=== PATIENT | female | born 1975 | race Caucasian/White ===

== ENCOUNTER → 2019-10-19 12:52 | Outpatient (BNVA) | payer MEDICAID, SELFPAY | PROVIDERS: Family Provider Family Medicine; PCP Family Medicine; Visit Provider Nurse Practitioner | DX: M54.9 Dorsalgia, unspecified (principal); M54.2 Cervicalgia; M25.561 Pain in right knee; M25.562 Pain in left knee; F17.210 Nicotine dependence, cigarettes, uncomplicated; Z71.6 Tobacco abuse counseling; Z79.891 Long term (current) use of opiate analgesic | CPT/HCPCS: 99214 ==

== ENCOUNTER → 2020-01-11 12:59 | Outpatient (BNVA) | payer MEDICAID, SELFPAY | PROVIDERS: Family Provider Family Medicine; PCP Family Medicine; Visit Provider Nurse Practitioner | DX: G89.29 Other chronic pain (principal); M54.42 Lumbago with sciatica, left side; M54.9 Dorsalgia, unspecified; F17.210 Nicotine dependence, cigarettes, uncomplicated; Z79.891 Long term (current) use of opiate analgesic; Z71.6 Tobacco abuse counseling | CPT/HCPCS: 99213; 99214 ==

== ENCOUNTER → 2020-05-17 12:53 | Outpatient (BNVA) | payer MEDICAID, SELFPAY | PROVIDERS: Family Provider Family Medicine; PCP Family Medicine; Visit Provider Nurse Practitioner | DX: G89.29 Other chronic pain (principal); M47.816 Spondylosis without myelopathy or radiculopathy, lumbar region; M25.561 Pain in right knee; M25.562 Pain in left knee; M54.9 Dorsalgia, unspecified; M79.2 Neuralgia and neuritis, unspecified; F17.210 Nicotine dependence, cigarettes, uncomplicated; Z79.891 Long term (current) use of opiate analgesic; Z71.6 Tobacco abuse counseling | CPT/HCPCS: 99213; 99214 ==

== ENCOUNTER → 2020-08-08 12:51 | Outpatient (BNVA) | payer MEDICAID, SELFPAY | PROVIDERS: Family Provider Family Medicine; PCP Family Medicine; Visit Provider Anesthesiology | DX: G89.29 Other chronic pain (principal); M47.816 Spondylosis without myelopathy or radiculopathy, lumbar region; M25.561 Pain in right knee; M25.562 Pain in left knee; M79.2 Neuralgia and neuritis, unspecified; M54.9 Dorsalgia, unspecified; F17.210 Nicotine dependence, cigarettes, uncomplicated; Z79.1 Long term (current) use of non-steroidal anti-inflammatories (NSAID); Z79.891 Long term (current) use of opiate analgesic | CPT/HCPCS: 99214 ==

== ENCOUNTER → 2020-11-02 13:04 | Outpatient (BNVA) | payer MEDICAID, SELFPAY | PROVIDERS: Family Provider Family Medicine; PCP Family Medicine; Visit Provider Anesthesiology | DX: G89.29 Other chronic pain (principal); M47.816 Spondylosis without myelopathy or radiculopathy, lumbar region; M25.561 Pain in right knee; M25.562 Pain in left knee; M79.2 Neuralgia and neuritis, unspecified; M54.9 Dorsalgia, unspecified; F17.210 Nicotine dependence, cigarettes, uncomplicated; Z79.891 Long term (current) use of opiate analgesic | CPT/HCPCS: 99214 ==

== ENCOUNTER → 2021-02-14 14:09 | Outpatient (BNVA) | payer MEDICAID, SELFPAY | PROVIDERS: Family Provider Family Medicine; PCP Family Medicine; Visit Provider Anesthesiology | DX: G89.29 Other chronic pain (principal); M47.816 Spondylosis without myelopathy or radiculopathy, lumbar region; M54.9 Dorsalgia, unspecified; M25.561 Pain in right knee; M25.562 Pain in left knee; M79.2 Neuralgia and neuritis, unspecified; F17.210 Nicotine dependence, cigarettes, uncomplicated; Z79.1 Long term (current) use of non-steroidal anti-inflammatories (NSAID); Z79.891 Long term (current) use of opiate analgesic | CPT/HCPCS: 99214 ==

== ENCOUNTER → 2021-05-10 13:28 | Outpatient (BNVA) | payer MEDICAID, SELFPAY | PROVIDERS: Family Provider Family Medicine; PCP Family Medicine; Visit Provider Anesthesiology | DX: G89.29 Other chronic pain (principal); M47.816 Spondylosis without myelopathy or radiculopathy, lumbar region; M25.561 Pain in right knee; M25.562 Pain in left knee; M79.2 Neuralgia and neuritis, unspecified; F17.200 Nicotine dependence, unspecified, uncomplicated; Z79.891 Long term (current) use of opiate analgesic; Z79.1 Long term (current) use of non-steroidal anti-inflammatories (NSAID) | CPT/HCPCS: 99214 ==

== ENCOUNTER 2021-08-07 10:43 | Outpatient (CLI) | payer OTHER, SELFPAY ==
--- NOTE | 2021-08-07 10:51 | XR_ITS ---
WS: [id number] XR knee RT 1-2V [id number] REASON FOR EXAM: PAIN FINDINGS: Examination is unchanged compared to the previous examination of 11/15/2018. There is been previous anterior cruciate repair. Medial and lateral joint spaces are relatively well-preserved. No significant subchondral bony abnorm ality. There is narrowing of the patellofemoral joint space with subchondral sclerosis and osteophytic spurr ing of the patella and lateral femoral condyle. XR/XR knee RT 1-2V [id number] IMPRESSION: Previous anterior cruciate ligament repair. Osteoarthritis in the patellofemoral joint space
--- NOTE | 2021-08-07 10:51 | XR_ITS ---
WS: [id number] XR knee LT 08-25V [id number] REASON FOR EXAM: PAIN FINDINGS: Healed fracture of the proximal left tibia. Tibial intramedullary florentin with old healed fracture of the proximal tibia. Fracture of the more inferi or transverse screw fixation of the intramedullary florentin in the proximal tibia. Medial and lateral knee joint space appear well preserved. No significant subchondral bone abnormalit y. There is mild narrowing of the patellofemoral joint space with mild subchondral sclerosis and margina l osteophytes of the patella. No soft tissue abnormality. XR/XR knee LT -V [id number] IMPRESSION: No acute abnormality. Healed fractures of the proximal tibia and fibula.
== END 2021-08-07 10:44 | disposition home or self-care (01) ==
LOC: RAD 10:44
PROVIDERS: PCP Family Medicine; Visit Provider Dermatology
DX: Z02.71 Encounter for disability determination (principal); M25.562 Pain in left knee; M17.11 Unilateral primary osteoarthritis, right knee
CPT/HCPCS: 73560

== ENCOUNTER → 2021-08-13 10:06 | Outpatient (BNVA) | payer MEDICAID, SELFPAY | PROVIDERS: PCP Family Medicine; Visit Provider Anesthesiology | DX: G89.29 Other chronic pain (principal); M47.816 Spondylosis without myelopathy or radiculopathy, lumbar region; M25.561 Pain in right knee; M25.562 Pain in left knee; M79.2 Neuralgia and neuritis, unspecified; F17.200 Nicotine dependence, unspecified, uncomplicated; Z79.891 Long term (current) use of opiate analgesic | CPT/HCPCS: 99214 ==

== ENCOUNTER 2022-04-30 10:06 | Outpatient (CLI) | payer OTHER, SELFPAY ==
--- NOTE | 2022-04-30 10:14 | XR_ITS ---
WS: [id number] Thoracic spine, AP and lateral views, 04/30/2022 Clinical Data: PAIN Comparison: None. Findings: No compression fractures are seen. The disc heights are normal. There is mild osteoarthritic spurring from the midthoracic vertebral bodies to T12. The paravertebral regions are normal. XR/XR thoracic spine 2V [id number] Impression: Mild osteoarthritis of the mid and lower thoracic vertebral bodies.
--- NOTE | 2022-04-30 10:15 | XR_ITS ---
WS: [id number] Lumbar spine, 3 views, 04/30/2022 Clinical Data: PAIN Comparison: Lumbar spine, 06/14/2015. Findings: No compression fractures or subluxation is seen. There is degenerative disc narrowing at L2-L3 and L5 -S1. There are anterior osteophytes L1-L5 and of the lower thoracic vertebral bodies. The transverse processes and SI joints are normal. There are clips in the right upper quadrant from a cholecystectom y. XR/XR lumbar spine 2-3V* [id number] Impression: 1. Degenerative disc narrowing at L2-L3 and L5-S1. 2. Mild osteoarthritis L-1-L5.
--- NOTE | 2022-04-30 10:15 | XR_ITS ---
WS: [email or web address] Left knee, 3 views, 04/30/2022 Clinical Data: PAIN Comparison: Left knee, 08/07/2021. Findings: There is an intramedullary florentin in the proximal left tibia fixed with 2 transverse screws. The distal screw is fractured. There is a healed fracture of the proximal tibia and the proximal left fibula. The medial and lateral joint compartments of the knee are normal. There is minimal spurring of the posterior patella. The s oft tissues are normal. XR/XR knee LT 1-2V 18470 Impression: 1. Healed fractures of proximal left tibia and fibula. 2. Minimal spurring of posterior left patella. Kellgren-Norbert Classification: grade 1 (doubtful): doubtful joint space narr owing and possible osteophytic lipping
== END 2022-04-30 10:07 | disposition home or self-care (01) ==
LOC: RAD 10:07
PROVIDERS: PCP Family Medicine; Visit Provider Dermatology
DX: M25.562 Pain in left knee (principal); M47.816 Spondylosis without myelopathy or radiculopathy, lumbar region; M47.814 Spondylosis without myelopathy or radiculopathy, thoracic region
CPT/HCPCS: 72070; 72100; 73560

== ENCOUNTER → 2023-04-27 15:50 | Outpatient (BNVA) | payer MEDICAID, SELFPAY | PROVIDERS: PCP Family Medicine; Visit Provider Registered Nurse Neonatal Intensive Care | DX: R05.9 Cough, unspecified (principal) | CPT/HCPCS: 87426 ==

== ENCOUNTER 2023-07-30 00:18 | Emergency (ER) | payer MEDICAID, SELFPAY ==
[2023-07-30 00:19] VITALS: BP 156/101; PULSE 95; RESP 16; TEMP 36.7; O2SAT 98; BMI 44.3
--- NOTE | 2023-07-30 00:41 | XRR_ITS ---
PROCEDURE INFORMATION: Exam: XR Lumbosacral Spine Exam date and time: 07/30/2023 1:03 AM Age: 48 years old Clinical indication: Injury or trauma; Fall; Additional info: Fall pain TECHNIQUE: Imaging protocol: Radiologic exam of the lumbosacral spine. Views: 2 or 3 views. COMPARISON: CR XR lumbar spine 2-3V* [id number] 04/30/2022 10:18 AM FINDINGS: Bones/joints: No acute appearing vertebral body compression deformity. Facet alignment is preserved. Multilevel disc degeneration and lower lumbar facet arthropathy. Soft tissues: Unremarkable. Cholecystectomy clips. XR/XR lumbar spine 2-3V* [id number] IMPRESSION: Somewhat limited evaluation due to patient habitus/technique. No acute fracture identified.
--- NOTE | 2023-07-30 00:41 | XRR_ITS ---
PROCEDURE INFORMATION: Exam: XR Left Elbow Exam date and time: 07/30/2023 12:57 AM Age: 48 years old Clinical indication: Pain; Elbow; Left; Additional info: Fall pain TECHNIQUE: Imaging protocol: Radiologic exam of the left elbow. Views: 3 or more views. COMPARISON: No relevant prior studies available. FINDINGS: Bones/joints: No acute fracture or dislocation. No joint effusion. Soft tissues: Unremarkable. XR/XR elbow LT min 3V* [id number] IMPRESSION: No acute fracture or dislocation.
--- NOTE | 2023-07-30 00:42 | ED_ITS ---
HPI - Fall General: Chief Complaint: Fall Stated Complaint: fall, back/arm pain Time Seen by Provider: 07/30/23 00:27 History of Present Illness: Patient presents to the ER with complaints of a fall and low back pain and left elbow pain. Patient states she fell about 930 and hit her low back and left elbow on a rock. Patient has chronic back pain but she said this is worse than normal. Patient does not have elbow pain normally so this is all from the fall. Patient can move her elbow but says when she tries to move it it is at wits when it starts hurting. Patient last took her tramadol around 7:00 this afternoon. complaint: fall Onset (ago): hour(s) (About 3 hours ago) Fall from: standing Loss of consciousness: None Symptoms prior to fall: none Context: tripped/slipped Location of injury: back (Left elbow) Review of Systems General: Reports: 10 or more systems reviewed and unremarkable except in HPI and below PFSH ED PFSH: Medical History Chronic low back pain Chronic neuropathic pain Bilateral numbness and tingling of arms and legs Long-term current use of opiate analgesic Pain management contract signed Lumbar radiculitis Tobacco use disorder Spondylosis without myelopathy or radiculopathy, lumbar region Surgical History Hx of tubal ligation Hx of appendectomy Hx of right knee surgery Family History Father Diabetes Hypertension Rheumatoid arthritis Mother Hypertension Sister Cancer CERVICAL CANCER Other Heart disease Social History Alcohol intake: never Substance/Drug Use: never Caregiver/support person: Yes Lives independently: Yes Physical Exam Const: COMMON NORMALS: no acute distress, average body habitus, patient oriented x3, no limitations, healthy appearing, alert and well nourished Neck/C-Spine: COMMON NORMALS: no JVD Chest: COMMONS NORMALS: normal inspection of the chest and normal palpation of entire chest wall Resp: COMMON NORMALS: normal respiratory effort, No retractions, No use of accessory muscles and clear to auscultation bilaterally AUSCULTATION: clear to auscultation bilaterally Cardio: COMMON NORMALS: no JVD, regular rate, regular rhythm, S1 normal heart sound present, S2 normal heart sound present, No gallops present (Cardio), No clicks present (Cardio), No murmurs present (Cardio) and No rub (Cardio) RATE: regular rate RHYTHM: regular rhythm HEART SOUNDS: S1 normal heart sound present and S2 normal heart sound present GI: COMMON NORMALS: Normal to inspection, nondistended, normoactive bowel sounds present, Soft to palpation, non-tender, No hepatosplenomegaly present and no masses PALPATION: Yes Soft to palpation and Yes No hepatosplenomegaly present Extremity: NARRATIVE EXTREMITY EXAM: Full range of motion of left elbow pain with palpation. Neuro: COMMON NORMALS: patient oriented x3 SENSORIUM/ORIENTATION: Yes alert Course Vital Signs: Vital signs: Vital Signs Temperature 98.0 F 07/30/23 00:19 Pulse Rate 77 07/30/23 00:51 Respiratory Rate 16 07/30/23 00:19 Blood Pressure 156/101 07/30/23 00:19 Pulse Oximetry 96 07/30/23 00:51 MDM - Fall Medical Decision Making Patient presents to the ER with a fall and acute on chronic low back pain and acute left elbow pain. Both these areas were x-rayed and no fracture was identified at either area. Patient was given tramadol 50 mg 1 tablet p.o. Patient be discharged home patient is to follow-up with her PCP in approximately 7 to 10 days or sooner for further evaluation and treatment. Differential Diagnosis Unlikely syncope, dislocation of shoulder region, fracture of wrist, compression fracture, concussion with loss of consciousness or concussion without loss of consciousness Medical Records I reviewed the patient's medical records. Lab Data I reviewed the patient's lab results. Radiology Impressions Elbow X-Ray 07/30/23 00:41 IMPRESSION: No acute fracture or dislocation. Lumbar Spine X-Ray 07/30/23 00:41 IMPRESSION: Somewhat limited evaluation due to patient habitus/technique. No acute fracture identified. All radiology interpretation(s) finalized by discharge Discharge Plan Discharge Patient Disposition: Home Clinical Impression: Elbow pain, left, Acute exacerbation of chronic low back pain Fall Qualifiers: Encounter type: initial encounter Qualified Code(s): W19.XXXA - Unspecified fall, initial encounter Condition: Stable Prescriptions: No Action ibuprofen 800 mg tablet 800 mg PO Q8H PRN (Reason: pain) Qty: 90 2RF budesonide-formoterol [Symbicort] 160-4.5 mcg/actuation HFA aerosol inhaler 2 puff inhalation BID PRN tramadol 50 mg tablet 100 mg PO Q6H PRN (Reason: pain (scale score 7-10)) Qty: 240 2RF Rx Instructions: Fill on or after 08/14/21, 09/13/21 and 10/13/21 zonisamide [Zonegran] 100 mg capsule 200 mg PO DAILY Qty: 60 2RF baclofen 20 mg tablet 20 mg PO QID Qty: 120 2RF albuterol sulfate [Proventil HFA] 90 mcg/actuation HFA aerosol inhaler 2 puff INHALATION QID diclofenac sodium [Voltaren] 1 % gel 4 g TOPICAL QID 30 Days Qty: 400 2RF Rx Instructions: apply to single knee, ankle, foot; for foot includes sole/toes/top of foot Discharge Orders: Discharge ED (Routine); Ordered 07/30/23 Ordered By: Zac Beckett Referrals: Khai Grady MD [Primary Care Provider] - 1 week Patient Instructions: Acute Low Back Pain (ED), Chronic Back Pain (DC) Activity Restrictions/Additional Instructions: Please continue your tramadol as needed for your pain. Please follow-up with your family practice physician within the next 7 to 10 days for further evaluation and treatment as needed. Coding Level of Care Code ED Drier Transfer Car Operator for Aimee Zamorano
[2023-07-30] MEDS: TRAMadol 50 mg Tablet PO (00:47)
[2023-07-30 00:51] VITALS: PULSE 77; O2SAT 96
[2023-07-30 02:12] VITALS: BP 156/101; PULSE 77; RESP 16; TEMP 36.7; O2SAT 96
== END 2023-07-30 02:13 | disposition home or self-care (01) ==
PROVIDERS: Emergency Provider Emergency Medicine; PCP Family Medicine
DX: G89.29 Other chronic pain (principal); M54.50 Low back pain, unspecified; M25.522 Pain in left elbow; W19.XXXA Unspecified fall, initial encounter
CPT/HCPCS: 72100; 73080; 99283

== ENCOUNTER 2024-01-24 17:23 | Emergency (ER) | payer SELFPAY ==
[2024-01-24] VITALS (7 sets, daily range): BP systolic 195–196; BP diastolic 75–124; PULSE 55–79; RESP 16–28; TEMP 36.5; O2SAT 94–100
--- NOTE | 2024-01-24 17:39 | CTR_ITS ---
PROCEDURE INFORMATION: Exam: CT Abdomen And Pelvis Without Contrast Exam date and time: 01/24/2024 6:33 PM Age: 48 years old Clinical indication: Abdominal pain; Right; Prior surgery; Surgery date: 6+ months; Surgery type: Gb. Appy; Patient HX: C/O RT flank pain. History of nephrolithiasis. TECHNIQUE: Imaging protocol: Computed tomography of the abdomen and pelvis without contrast. Radiation optimization: All CT scans at this facility use at least one of these dose optimization techniques: automated exposure control; mA and/or kV adjustment per patient size (includes targeted exams where dose is matched to clinical indication); or iterative reconstruction. COMPARISON: CR XR lumbar spine 2-3V* [id number] 07/30/2023 1:03 AM RADIATION DOSE METRICS: Total DLP (mGy-cm): 1258.93 FINDINGS: Lungs: The lung bases are clear. Liver: The liver is fatty but not significantly enlarged. Gallbladder and bile ducts: The gallbladder is surgically absent. Pancreas: Normal. No ductal dilation. Spleen: Normal. No splenomegaly. Adrenal glands: Normal. No mass. Kidneys and ureters: Mild right hydronephrosis and hydroureter due to a 8 x 6 x 3 mm calculus in the mid ureter at the level of the iliac crest. No stones in the left kidney. Stomach and bowel: Incidental noninflamed sigmoid diverticula. Appendix: No evidence of appendicitis. Intraperitoneal space: Unremarkable. No free air. No significant fluid collection. Vasculature: Unremarkable. No abdominal aortic aneurysm. Lymph nodes: Unremarkable. No enlarged lymph nodes. Urinary bladder: Unremarkable as visualized. Reproductive: Unremarkable as visualized. Bones/joints: L5-S1 chronic degenerative disc disease. Soft tissues: Small noninflamed fatty umbilical hernia. CT/CT kidney stone [id number] IMPRESSION: 1. Mild right obstructive uropathy due to an 8 mm mid ureteral calculus. 2. Hepatic steatosis. 3. Other incidental findings as described
--- NOTE | 2024-01-24 17:40 | ED_ITS ---
Documented by User: SHWETA Chao 01/24/24 19:35 HPI - Female Genitourinary 2 General: Chief complaint: Urogenital-Female Stated complaint: Low right side back pain Time Seen by Provider: 01/24/24 17:38 History of Present Illness: 48-year-old female comes in today with r ight side back pain that started about 10:00 this morning. Patient reports a history of kidney stones and ruptured disc. Patient has had her gallbladder and appendix both removed. Patient denies any problems of bowel or gas. Patient reports no difficulty with urination. Patient denies . Patient has a history of tubal ligation. MD elicited complaint: back pain and flank pain Pertinent past history: other (Tubal ligation) Onset (ago): hour(s) Location of symptoms: flank Severity: severe Female Urogenital Radiation: LRQ Quality of pain: sharp Consistency: constant Vaginal discharge: none Exacerbating factors: movement Treatment prior to arrival: none Patient : No Possible : other Review of Systems 2 General: Reports: 10 or more systems reviewed and unremarkable except in HPI and below : Reports: flank pain PFSH ED 2 PFSH: Medical History Chronic low back pain Chronic neuropathic pain Bilateral numbness and tingling of arms and legs Long-term current use of opiate analgesic Pain management contract signed Lumbar radiculitis Tobacco use disorder Spondylosis without myelopathy or radiculopathy, lumbar region Surgical History Hx of tubal ligation Hx of appendectomy Hx of right knee surgery Family History Father Diabetes Hypertension Rheumatoid arthritis Mother Hypertension Sister Cancer CERVICAL CANCER Other Heart disease Social History Alcohol intake: never Substance/Drug Use: never Caregiver/support person: Yes Lives independently: Yes Physical Exam 2 Const: COMMON NORMALS: alert HENMT: COMMON NORMALS: normocephalic HEAD & SCALP: normocephalic THROAT: posterior oropharynx normal Neck/C-Spine: COMMON NORMALS: full ROM Resp: COMMON NORMALS: normal respiratory effort and clear to auscultation bilaterally AUSCULTATION: clear to auscultation bilaterally Cardio: COMMON NORMALS: regular rate and regular rhythm RATE: regular rate RHYTHM: regular rhythm GI: COMMON NORMALS: non-tender : BLADDER/KIDNEY EXAM: Yes CVA tenderness on the right Back/Pelvis: GENERAL BACK: Yes CVA tenderness LUMBAR SPINE/LOWER BACK: Yes lumbar spinal tenderness and Yes paraspinal muscle tenderness Lumbar paraspinal muscle tenderness: right Right lumbar paraspinal muscle tenderness: L4 and L5 Extremity: COMMON NORMALS: no pedal edema Neuro: SENSORIUM/ORIENTATION: Yes alert Skin: COMMON NORMALS: turgor normal GENERAL SKIN EXAM: turgor normal Course 2 Vital Signs: Vital signs: Vital Signs Temperature 97.7 F 01/24/24 17:28 Pulse Rate 79 01/24/24 19:58 Respiratory Rate 16 01/24/24 19:58 Blood Pressure 195/75 01/24/24 17:33 Pulse Oximetry 94 01/24/24 19:58 Oxygen Delivery Me thod Room Air 01/24/24 17:33 MDM - Female Medical Decision Making Patient presents today with complaints of right flank pain radiating to the right lower abdomen. Patient reports symptoms started this morning. Patient appears in moderate to severe pain. Patient appears nontoxic. Respirations are even lungs are clear to auscultation. Abdomen soft with some tenderness in the right lower quadrant of the abdomen. Vital signs notes some elevated blood pressure 136/124. Differential diagnosis includes lumbar strain, intervertebral disc disease, facet arthropathy, UTI, pyelonephritis, renal colic, renal calculi, constipation, diverticulitis, pancreatitis. CBC noted some neutropenia at 0.58. CMP was unremarkable. Urinalysis was unremarkable for infection. CT of the abdomen and pelvis noted some fatty liver disease with a mild right obstructive uropathy due to 8 mm mid ureteral calculus. Patient's pain was brought under control with ketorolac 15 mg, 4 mg of morphine, and 4 mg of ondansetron. No signs of serious infection was noted. I recommended patient follow-up with urology due to the size of the stone and most likely and need to have removal of the stone. Patient reported understanding. Case management referral request was placed. I reviewed with Dr. Magñaa and the up-to-date reference material for the neutropenia which suggested that a level between 0.5 and one of the neutrophils should be reevaluated in 1 week with Repeat lab. I discussed with patient who reported understanding. Lab Data 01/24/24 18:03 01/24/24 18:03 Radiology Impressions Abdomen/Pelvis CT 01/24/24 17:39 IMPRESSION: 1. Mild right obstructive uropathy due to an 8 mm mid ureteral calculus. 2. Hepatic steatosis. 3. Other incidental findings as described Laboratory Results WBC 6.89 10^3/uL (3.29-11.43) 01/24/24 18:03 RBC 4.78 10^6/uL (3.85-5.65) 01/24/24 18:03 Hgb 14.70 g/dL (11.27-16.99) 01/24/24 18:03 Hct 44.6 % (36-47) 01/24/24 18:03 MCV 93.3 fl (85-98) 01/24/24 18:03 MCH 30.8 pg (27-33) 01/24/24 18:03 MCHC 33.0 g/dL (30-55) 01/24/24 18:03 RDW 13.9 % (12.1-15.1) 01/24/24 18:03 Plt Count 179 10^3/cmm (157-399) 01/24/24 18:03 MPV 11.1 fL (7.4-10.4) H 01/24/24 18:03 Neut % (Auto) 8.5 % 01/24/24 18:03 Lymph % (Auto) 82.1 % 01/24/24 18:03 [place] % (Auto) 9.3 % 01/24/24 18:03 Eos % (Auto) 0.0 % 01/24/24 18:03 Baso % (Auto) 0.1 % 01/24/24 18:03 Neut # (Auto) 0.58 10^3/uL (1.8-7.7) L* 01/24/24 18:03 Lymph # (Auto) 5.7 10^3/uL (0.8-4.8) H 01/24/24 18:03 [place] # (Auto) 0.6 10^3/uL (0.2-0.9) 01/24/24 18:03 Eos # (Auto) 0.0 10^3/uL (0.0-0.8) 01/24/24 18:03 Baso # (Auto) 0.0 10^3/uL (0.0-0.1) 01/24/24 18:03 Nucleated RBC % (auto) 0 % 01/24/24 18:03 Nucleated RBCs # 0.0 /100WBC 01/24/24 18:03 Sodium 137 mmol/L (136-145) 01/24/24 18:03 Potassium 4.0 mmol/L (3.5-5.1) 01/24/24 18:03 Chloride 102 mmol/L (98-107) 01/24/24 18:03 Carbon Dioxide 22 mmol/L (22-29) 01/24/24 18:03 Anion Gap 17.0 (5-19) 01/24/24 18:03 BUN 14 mg/dL (6-20) 01/24/24 18:03 Creatinine 0.8 mg/dL (0.5-0.9) 01/24/24 18:03 GFR Calculation 76.9 mL/min (90-130) L 01/24/24 18:03 Glucose 103 mg/dL (65-115) 01/24/24 18:03 Calculated Osmolality 285 mOsm/kg (285-295) 01/24/24 18:03 Calcium 9.2 mg/dL (8.5-10.5) 01/24/24 18:03 Total Bilirubin 0.4 mg/dL (0.15-1.2) 01/24/24 18:03 AST 28 U/L (0-32) 01/24/24 18:03 ALT 63 U/L (0-33) H 01/24/24 18:03 Alkaline Phosphatase 119 U/L (35-105) H 01/24/24 18:03 Total Protein 8.5 g/dL (6.6-8.7) 01/24/24 18:03 Albumin 4.0 g/dL (3.5-5.2) 01/24/24 18:03 Globulin 4.5 g/dL (1.3-4.6) 01/24/24 18:03 Lipase 73 U/L (13-60) H 01/24/24 18:03 HCG, Qual Negative (Negative) 01/24/24 18:03 Urine Color Yellow (Yellow) 01/24/24 18:20 Urine Appearance Cloudy (CLEAR) A 01/24/24 18:20 Urine pH 5 (5-7) 01/24/24 18:20 Ur Specific [place] 1.020 (1.005-1.030) 01/24/24 18:20 Urine Protein Neg (Negative) 01/24/24 18:20 Urine Glucose (UA) Norm (Normal) 01/24/24 18:20 Urine Ketones Negative (Negative) 01/24/24 18:20 Urine Blood 2+ (Negative) H 01/24/24 18:20 Urine Nitrate Negative (Negative) 01/24/24 18:20 Urine Bilirubin Neg (Negative) 01/24/24 18:20 Urine Urobilinogen Neg mg/dL (Negative) 01/24/24 18:20 Ur Leukocyte Esterase Negative (Negative) 01/24/24 18:20 Urine RBC 5-10 /hpf (0-2) H 01/24/24 18:20 Urine WBC 5-10 /hpf (0-5) H 01/24/24 18:20 Ur Squamous Epith Cells 5-10 /hpf (0-5) H 01/24/24 18:20 Amorphous Sediment Trace /hpf 01/24/24 18:20 Urine Bacteria 3+ /hpf (NONE) H 01/24/24 18:20 Urine Mucus 1+ /hpf 01/24/24 18:20 All radiology interpretation(s) finalized by discharge Discharge Plan Discharge Patient Disposition: Home Clinical Impression: Right ureteral calculus Neutropenia Qualifiers: Neutropenia type: unspecified Qualified Code(s): D70.9 - Neutropenia, unspecified Condition: Stable Prescriptions: New ketorolac 10 mg tablet 10 mg PO Q6H PRN (Reason: pain) Qty: 14 0RF Rx Instructions: do not take with ibuprofen or naproxen ondansetron HCl 4 mg tablet 4 mg PO Q8H PRN (Reason: nausea and vomiting) Qty: 12 0RF tamsulosin 0.4 mg capsule 0.4 mg PO DAILY Qty: 14 0RF No Action ibuprofen 800 mg tablet 800 mg PO Q8H PRN (Reason: pain) Qty: 90 2RF budesonide-formoterol [Symbicort] 160-4.5 mcg/actuation HFA aerosol inhaler 2 puff inhalation BID PRN tramadol 50 mg tablet 100 mg PO Q6H PRN (Reason: pain (scale score 7-10)) Qty: 240 2RF Rx Instructions: Fill on or after 08/14/21, 09/13/21 and 10/13/21 zonisamide [Zonegran] 100 mg capsule 200 mg PO DAILY Qty: 60 2RF baclofen 20 mg tablet 20 mg PO QID Qty: 120 2RF albuterol sulfate [Proventil HFA] 90 mcg/actuation HFA aerosol inhaler 2 puff INHALATION QID diclofenac sodium [Voltaren] 1 % gel 4 g TOPICAL QID 30 Days Qty: 400 2RF Rx Instructions: apply to single knee, ankle, foot; for foot includes sole/toes/top of foot Discharge Orders: Discharge ED (Routine); Ordered 01/24/24 Ordered By: Grant Novak Referrals: Khai Grady MD [Primary Care Provider] - Discharge Diet: Usual diet Discharge Activity: Increase activity as tolerated Patient Instructions: Kidney Stones (ED) Activity Restrictions/Additional Instructions: Home and rest. Drink plenty of fluids. Take medications as directed. You will need to follow-up with a urologist. I requested case management to help you with the follow-up appointment. Contact your pain specialist regarding changes in medications for your pain control. Use ketorolac, ondansetron, and tamsulosin as directed to help with pain and passing of the renal stone. You will need to follow-up with primary care in 1 week for recheck of your blood work due to some low neutrophils noted on your blood work. Return to ER for worsening symptoms such as a fever greater than 100.4, uncontrolled pain, or new concerns. Coding Level of Care Code ED Unix System Administrator for Chg Fwd Documented by User: Akhil Magaña DO 01/24/24 21:01 HPI - Female Genitourinary 2 General: Chief complaint: Urogenital-Female Stated complaint: Low right side back pain Time Seen by Provider: 01/24/24 17:38 PFSH ED 2 PFSH: Medical History Chronic low back pain Chronic neuropathic pain Bilateral numbness and tingling of arms and legs Long-term current use of opiate analgesic Pain management contract signed Lumbar radiculitis Tobacco use disorder Spondylosis without myelopathy or radiculopathy, lumbar region Surgical History Hx of tubal ligation Hx of appendectomy Hx of right knee surgery Family History Father Diabetes Hypertension Rheumatoid arthritis Mother Hypertension Sister Cancer CERVICAL CANCER Other Heart disease Social History Alcohol intake: never Substance/Drug Use: never Caregiver/support person: Yes Lives independently: Yes Course 2 Vital Signs: Vital signs: Vital Signs Temperature 97.7 F 01/24/24 17:28 Pulse Rate 79 01/24/24 19:58 Respiratory Rate 16 01/24/24 19:58 Blood Pressure 195/75 01/24/24 17:33 Pulse Oximetry 94 01/24/24 19:58 Oxygen Delivery Me thod Room Air 01/24/24 17:33 MDM - Female Medical Decision Making Patient presents today with complaints of right flank pain radiating to the right lower abdomen. Patient reports symptoms started this morning. Patient appears in moderate to severe pain. Patient appears nontoxic. Respirations are even lungs are clear to auscultation. Abdomen soft with some tenderness in the right lower quadrant of the abdomen. Vital signs notes some elevated blood pressure 136/124. Differential diagnosis includes lumbar strain, intervertebral disc disease, facet arthropathy, UTI, pyelonephritis, renal colic, renal calculi, constipation, diverticulitis, pancreatitis. CBC noted some neutropenia at 0.58. CMP was unremarkable. Urinalysis was unremarkable for infection. CT of the abdomen and pelvis noted some fatty liver disease with a mild right obstructive uropathy due to 8 mm mid ureteral calculus. Patient's pain was brought under control with ketorolac 15 mg, 4 mg of morphine, and 4 mg of ondansetron. No signs of serious infection was noted. I recommended patient follow-up with urology due to the size of the stone and most likely and need to have removal of the stone. Patient reported understanding. Case management referral request was placed. I reviewed with Dr. Magaña and the up-to-date reference material for the neutropenia which suggested that a level between 0.5 and one of the neutrophils should be reevaluated in 1 week with Repeat lab. I discussed with patient who reported understanding. This patient was originally seen by SHWETA Obrien.? I agree with his history, evaluation, and treatment. Lab Data 01/24/24 18:03 01/24/24 18:03 Radiology Impressions Abdomen/Pelvis CT 01/24/24 17:39 IMPRESSION: 1. Mild right obstructive uropathy due to an 8 mm mid ureteral calculus. 2. Hepatic steatosis. 3. Other incidental findings as described Laboratory Results WBC 6.89 10^3/uL (3.29-11.43) 01/24/24 18:03 RBC 4.78 10^6/uL (3.85-5.65) 01/24/24 18:03 Hgb 14.70 g/dL (11.27-16.99) 01/24/24 18:03 Hct 44.6 % (36-47) 01/24/24 18:03 MCV 93.3 fl (85-98) 01/24/24 18:03 MCH 30.8 pg (27-33) 01/24/24 18:03 MCHC 33.0 g/dL (30-55) 01/24/24 18:03 RDW 13.9 % (12.1-15.1) 01/24/24 18:03 Plt Count 179 10^3/cmm (157-399) 01/24/24 18:03 MPV 11.1 fL (7.4-10.4) H 01/24/24 18:03 Neut % (Auto) 8.5 % 01/24/24 18:03 Lymph % (Auto) 82.1 % 01/24/24 18:03 [place] % (Auto) 9.3 % 01/24/24 18:03 Eos % (Auto) 0.0 % 01/24/24 18:03 Baso % (Auto) 0.1 % 01/24/24 18:03 Neut # (Auto) 0.58 10^3/uL (1.8-7.7) L* 01/24/24 18:03 Lymph # (Auto) 5.7 10^3/uL (0.8-4.8) H 01/24/24 18:03 [place] # (Auto) 0.6 10^3/uL (0.2-0.9) 01/24/24 18:03 Eos # (Auto) 0.0 10^3/uL (0.0-0.8) 01/24/24 18:03 Baso # (Auto) 0.0 10^3/uL (0.0-0.1) 01/24/24 18:03 Nucleated RBC % (auto) 0 % 01/24/24 18:03 Nucleated RBCs # 0.0 /100WBC 01/24/24 18:03 Sodium 137 mmol/L (136-145) 01/24/24 18:03 Potassium 4.0 mmol/L (3.5-5.1) 01/24/24 18:03 Chloride 102 mmol/L (98-107) 01/24/24 18:03 Carbon Dioxide 22 mmol/L (22-29) 01/24/24 18:03 Anion Gap 17.0 (5-19) 01/24/24 18:03 BUN 14 mg/dL (6-20) 01/24/24 18:03 Creatinine 0.8 mg/dL (0.5-0.9) 01/24/24 18:03 GFR Calculation 76.9 mL/min (90-130) L 01/24/24 18:03 Glucose 103 mg/dL (65-115) 01/24/24 18:03 Calculated Osmolality 285 mOsm/kg (285-295) 01/24/24 18:03 Calcium 9.2 mg/dL (8.5-10.5) 01/24/24 18:03 Total Bilirubin 0.4 mg/dL (0.15-1.2) 01/24/24 18:03 AST 28 U/L (0-32) 01/24/24 18:03 ALT 63 U/L (0-33) H 01/24/24 18:03 Alkaline Phosphatase 119 U/L (35-105) H 01/24/24 18:03 Total Protein 8.5 g/dL (6.6-8.7) 01/24/24 18:03 Albumin 4.0 g/dL (3.5-5.2) 01/24/24 18:03 Globulin 4.5 g/dL (1.3-4.6) 01/24/24 18:03 Lipase 73 U/L (13-60) H 01/24/24 18:03 HCG, Qual Negative (Negative) 01/24/24 18:03 Urine Color Yellow (Yellow) 01/24/24 18:20 Urine Appearance Cloudy (CLEAR) A 01/24/24 18:20 Urine pH 5 (5-7) 01/24/24 18:20 Ur Specific [place] 1.020 (1.005-1.030) 01/24/24 18:20 Urine Protein Neg (Negative) 01/24/24 18:20 Urine Glucose (UA) Norm (Normal) 01/24/24 18:20 Urine Ketones Negative (Negative) 01/24/24 18:20 Urine Blood 2+ (Negative) H 01/24/24 18:20 Urine Nitrate Negative (Negative) 01/24/24 18:20 Urine Bilirubin Neg (Negative) 01/24/24 18:20 Urine Urobilinogen Neg mg/dL (Negative) 01/24/24 18:20 Ur Leukocyte Esterase Negative (Negative) 01/24/24 18:20 Urine RBC 5-10 /hpf (0-2) H 01/24/24 18:20 Urine WBC 5-10 /hpf (0-5) H 01/24/24 18:20 Ur Squamous Epith Cells 5-10 /hpf (0-5) H 01/24/24 18:20 Amorphous Sediment Trace /hpf 01/24/24 18:20 Urine Bacteria 3+ /hpf (NONE) H 01/24/24 18:20 Urine Mucus 1+ /hpf 01/24/24 18:20 Discharge Plan Discharge Patient Disposition: Home Clinical Impression: Right ureteral calculus Neutropenia Qualifiers: Neutropenia type: unspecified Qualified Code(s): D70.9 - Neutropenia, unspecified Condition: Stable Prescriptions: New ketorolac 10 mg tablet 10 mg PO Q6H PRN (Reason: pain) Qty: 14 0RF Rx Instructions: do not take with ibuprofen or naproxen ondansetron HCl 4 mg tablet 4 mg PO Q8H PRN (Reason: nausea and vomiting) Qty: 12 0RF tamsulosin 0.4 mg capsule 0.4 mg PO DAILY Qty: 14 0RF No Action ibuprofen 800 mg tablet 800 mg PO Q8H PRN (Reason: pain) Qty: 90 2RF budesonide-formoterol [Symbicort] 160-4.5 mcg/actuation HFA aerosol inhaler 2 puff inhalation BID PRN tramadol 50 mg tablet 100 mg PO Q6H PRN (Reason: pain (scale score 7-10)) Qty: 240 2RF Rx Instructions: Fill on or after 08/14/21, 09/13/21 and 10/13/21 zonisamide [Zonegran] 100 mg capsule 200 mg PO DAILY Qty: 60 2RF baclofen 20 mg tablet 20 mg PO QID Qty: 120 2RF albuterol sulfate [Proventil HFA] 90 mcg/actuation HFA aerosol inhaler 2 puff INHALATION QID diclofenac sodium [Voltaren] 1 % gel 4 g TOPICAL QID 30 Days Qty: 400 2RF Rx Instructions: apply to single knee, ankle, foot; for foot includes sole/toes/top of foot Discharge Orders: Discharge ED (Routine); Ordered 01/24/24 Ordered By: Grant Novak Referrals: Khai Grady MD [Primary Care Provider] - Discharge Diet: Usual diet Discharge Activity: Increase activity as tolerated Patient Instructions: Kidney Stones (ED) Activity Restrictions/Additional Instructions: Home and rest. Drink plenty of fluids. Take medications as directed. You will need to follow-up with a urologist. I requested case management to help you with the follow-up appointment. Contact your pain specialist regarding changes in medications for your pain control. Use ketorolac, ondansetron, and tamsulosin as directed to help with pain and passing of the renal stone. You will need to follow-up with primary care in 1 week for recheck of your blood work due to some low neutrophils noted on your blood work. Return to ER for worsening symptoms such as a fever greater than 100.4, uncontrolled pain, or new concerns. Coding Level of Care Code ED Unix System Administrator for Aimee Zamorano
[2024-01-24] MEDS: ketorolac 30 mg/mL INJ 15 MG IVP (18:06)
[2024-01-24] MEDS: morphine 4 mg/mL SDV 1 mL IVP (18:06)
[2024-01-24] MEDS: ondansetron 2 mg/ML SDV 2 mL 4 MG IVP (18:06)
[2024-01-24 18:10] LABS: Basophils % 0.1 %; Hematocrit 44.6 % (36-47); Lymphocytes # 5.7 10^3/uL (0.8-4.8); Lymphocytes % 82.1 %; Mean Corpuscular Hemoglobin 30.8 pg (27-33); Mean Corpuscular Volume 93.3 fl (85-98); Mean Platelet Volume 11.1 fL (7.4-10.4); Monocytes # 0.6 10^3/uL (0.2-0.9); Monocytes % 9.3 %; Neutrophils % 8.5 %; Nucleated Red Blood Cells % 0 %; Platelet Count 179 10^3/cmm (157-399); Red Blood Count 4.78 10^6/uL (3.85-5.65); Red Cell Distribution Width 13.9 % (12.1-15.1); White Blood Count 6.89 10^3/uL (3.29-11.43)
[2024-01-24 18:20] LABS: HCG, Serum Qual Negative (Negative)
[2024-01-24 18:23] LABS: Neutrophils # 0.58 10^3/uL (1.8-7.7)
[2024-01-24 18:26] LABS: Alanine Aminotransferase 63 U/L (0-33); Alkaline Phosphatase 119 U/L (35-105); Aspartate Amino Transferase 28 U/L (0-32); Blood Urea Nitrogen 14 mg/dL (6-20); Calcium 9.2 mg/dL (8.5-10.5); Carbon Dioxide 22 mmol/L (22-29); Chloride 102 mmol/L (98-107); Globulin 4.5 g/dL (1.3-4.6); Glomerular Filtration Rate 76.9 mL/min (90-130); Glucose 103 mg/dL (65-115); Lipase 73 U/L (13-60); Osmolality Calculated 285 mOsm/kg (285-295); Sodium 137 mmol/L (136-145); Total Bilirubin 0.4 mg/dL (0.15-1.2); Total Protein 8.5 g/dL (6.6-8.7)
[2024-01-24 18:41] LABS: Urine Color Yellow (Yellow)
[2024-01-24 18:42] LABS: Add Urine Culture? Yes; Add Urine Microscopic? YES; Amorphous Sediment Urine TRACE /hpf; Bacteria Urine 3+ /hpf; Bilirubin Urine Neg (Negative); Blood Urine 2+ (Negative); Glucose Urine UA Norm (Normal); Ketones Urine Negative (Negative); Leukocyte Esterase Urine Negative (Negative); Mucus Urine 1+ /hpf; Nitrate Urine Negative (Negative); Protein Urine Neg (Negative); Urine Appearance Cloudy (CLEAR); Urobilinogen Urine Neg (Negative); pH Urine 5 (5-7)
[2024-01-24] MEDS: ketorolac 10 mg Tablet PO (19:52)
--- NOTE | 2024-01-25 07:44 | DCPLANNER ---
faxed referral to [facility] for er f/u
== END 2024-01-24 20:00 | disposition home or self-care (01) ==
PROVIDERS: Emergency Provider Nurse Practitioner Family; PCP Family Medicine
DX: D70.9 Neutropenia, unspecified (principal); N20.1 Calculus of ureter
CPT/HCPCS: 74176; 80053; 81001; 83690; 84703; 85025; 87086; 96374; 96375; 99285; J1885; J2270; J2405

== ENCOUNTER → 2025-05-03 11:08 | Outpatient (BNVA) | payer MEDICAID, SELFPAY | PROVIDERS: PCP Family Medicine; Visit Provider Family Medicine | DX: Z00.00 Encounter for general adult medical examination without abnormal findings (principal); E53.8 Deficiency of other specified B group vitamins; E55.9 Vitamin D deficiency, unspecified; R53.81 Other malaise; R53.83 Other fatigue; Z13.6 Encounter for screening for cardiovascular disorders; R73.09 Other abnormal glucose; Z51.81 Encounter for therapeutic drug level monitoring | CPT/HCPCS: 80053; 80061; 82306; 82607; 83036; 84439; 84443; 85025 ==